=== PATIENT | female | born 1980 | race Two or more races ===

== ENCOUNTER 2017-02-04 17:01 | Emergency (ER) | payer OTHER ==
[2017-02-04 17:35] VITALS: BP 105/67
[2017-02-04] MEDS ORDERED: AZIT250T6 PO (17:42)
[2017-02-04] MEDS ORDERED: PRED20TA PO (17:42)
[2017-02-04] MEDS ORDERED: TRAM50TA PO (17:42)
--- NOTE | 2017-02-04 17:42 | PHYS DOC ---
Adult General Chief Complaint Chief Complaint: SORE THROAT HPI HPI Patient is a 36 year old female presents the ED complaining of sore throat 4 days. Describes the pain as sharp. Rates the pain as 8 out of 10. States she has had a history of strep throat infections. Sick contacts with similar symptoms. Associated symptoms include subjective fever, rhinorrhea and ear pain. Denies cough, chest pain, shortness of breath, dizziness, weakness, headache, rash or conjunctivitis. Review of Systems Review of Systems Constitutional: Complains of subjective fever. Denies chills [] Eyes: Denies change in visual acuity, redness, or eye pain [] HENT: Complains of rhinorrhea and sore throat. [] Respiratory: Denies cough or shortness of breath [] Cardiovascular: No additional information not addressed in HPI [] GI: Denies abdominal pain, nausea, vomiting, bloody stools or diarrhea [] : Denies dysuria or hematuria [] Musculoskeletal: Denies back pain or joint pain [] Integument: Denies rash or skin lesions [] Neurologic: Denies headache, focal weakness or sensory changes [] Endocrine: Denies polyuria or polydipsia [] All other systems were reviewed and found to be within normal limits, except as documented in this note. Allergies Allergies Allergies Coded Allergies Type Severity Reaction Last Updated Verified amoxicillin Allergy Intermediate Unknown 02/04/17 Yes sulfamethoxazole Allergy Intermediate Unknown 02/04/17 Yes trimethoprim Allergy Intermediate Unknown 02/04/17 Yes Physical Exam Physical Exam Constitutional: Well developed, well nourished, no acute distress, non-toxic appearance. [] HENT: Normocephalic, atraumatic, bilateral external ears normal, oropharynx moist, MILD PHARYNGEAL ERYTHEMA WITH EXUDATES. UVULA MIDLINE. nose normal. [] Eyes: PERRLA, EOMI, conjunctiva normal, no discharge. [] Neck: Normal range of motion, no tenderness, supple, no stridor. [] Cardiovascular:Heart rate regular rhythm, no murmur [] Lungs & Thorax: Bilateral breath sounds clear to auscultation [] Abdomen: Bowel sounds normal, soft, no tenderness, no masses, no pulsatile masses. [] Skin: Warm, dry, no erythema, no rash. [] Back: No tenderness, no CVA tenderness. [] Extremities: No tenderness, no cyanosis, no clubbing, ROM intact, no edema. [] Neurologic: Alert and oriented X 3, normal motor function, normal sensory function, no focal deficits noted. [] Psychologic: Affect normal, judgement normal, mood normal. [] Current Patient Data Vital Signs Vital Signs Date Time Temp Pulse Resp B/P (MAP) Pulse Ox O2 Delivery O2 Flow Rate FiO2 02/04/17 17:35 98.6 80 18 99 Room Air 98.6 EKG EKG [] Radiology/Procedures Radiology/Procedures [] Course & Med Decision Making Course & Med Decision Making Pertinent Labs and Imaging studies reviewed. (See chart for details) []Will treat for pharyngitis based on exam and history. Discussed symptomatic treatment at home. Discussed follow-up and reasons to return to the ED. Patient understands and agrees with plan. Dragon Disclaimer Dragon Disclaimer This electronic medical record was generated, in whole or in part, using a voice recognition dictation system. Departure Departure Impression: Primary Impression: Pharyngitis Disposition: 01 HOME, SELF-CARE Condition: STABLE Referrals: UNKNOWN PCP NAME (PCP) JUAN DIEGO KELLY MD Patient Instructions: Viral and Bacterial Pharyngitis Scripts Azithromycin (AZITHROMYCIN TABLET) 250 Mg Tablet 1 PKG PO UD, #6 TAB Prov: ZANDER LINARES 02/04/17 Tramadol Hcl (TRAMADOL HCL) 50 Mg Tablet 1 TAB PO PRN Q6HRS, #15 TAB Prov: ZANDER LINARES 02/04/17 Prednisone (PREDNISONE) 20 Mg Tablet 2 TAB PO DAILY, #10 TAB Prov: ZANDER LINARES 02/04/17 ZANDER LINARES Feb 04, 2017 17:42
== END 2017-02-04 17:49 | disposition home or self-care (01) ==
LOC: ER 17:01
DX: J02.9 Acute pharyngitis, unspecified (principal); H92.09 Otalgia, unspecified ear; Z88.1 Allergy status to other antibiotic agents
CPT/HCPCS: 99283

== ENCOUNTER 2017-03-02 14:27 | Emergency (ER) | payer OTHER ==
[~2017-03-02] VITALS: Ht 142.2 cm; Wt 58.5 kg
[~2017-03-02 14:27] MED LIST: AZIT250T6 PO; PRED20TA PO; TRAM50TA PO
[2017-03-02 15:47] VITALS: BP 99/65
[2017-03-02 16:12] LABS: BILIRUBIN,URINE NEGATIVE (NEG); GLUCOSE,URINE NEGATIVE (NEG); NITRITE,URINE NEGATIVE (NEG); PH,URINE 5.5; PROTEIN,URINE NEGATIVE (NEG-TRACE); UROBILINOGEN,URINE 0.2 mg/dL (0.2 mg/dL)
[2017-03-02 16:23] LABS: BACTERIA,URINE FEW /HPF (0-FEW); RBC,URINE 0 /HPF (0-2); SQUAMOUS EPITHELIAL CELL,UR OCC /LPF; WBC,URINE OCC /HPF (0-4)
[2017-03-02] MEDS ORDERED: IBUP-1007 PO (17:41)
--- NOTE | 2017-03-02 17:41 | PHYS DOC ---
Past Medical History Past Medical History: Hypothyroid, Other Additional Past Medical Histor: PCOS Past Surgical History: No Surgical History Alcohol Use: None Drug Use: None Adult General Chief Complaint Chief Complaint: ABDOMINAL PAIN HPI HPI Patient is a 36 year old female who presents with complaint of lower abdominal pain. Patient states that her symptoms started this morning upon awakening. Patient states that she is having lower abdominal cramping states that she has had some mild dysuria associated with symptoms. Patient denies any fevers. Patient has had nausea but no vomiting. The patient states currently she is not having any pain. The patient has not taken any medications for her symptoms. The patient states her last menstrual period was in June 2016. Patient states she has history of polycystic ovarian syndrome and hypothyroidism. Patient denies any vaginal bleeding or abnormal discharge. Review of Systems Review of Systems Constitutional: Denies fever or chills [] Eyes: Denies change in visual acuity, redness, or eye pain [] HENT: Denies nasal congestion or sore throat [] Respiratory: Denies cough or shortness of breath [] Cardiovascular: Denies chest pain or edema[] GI: Lower abdominal pain, nausea, denies vomiting, bloody stools or diarrhea [] : Denies dysuria or hematuria [] Musculoskeletal: Denies back pain or joint pain [] Integument: Denies rash or skin lesions [] Neurologic: Denies headache, focal weakness or sensory changes [] All other systems were reviewed and found to be within normal limits, except as documented in this note. Allergies Allergies Allergies Coded Allergies Type Severity Reaction Last Updated Verified amoxicillin Allergy Intermediate Unknown 02/04/17 Yes sulfamethoxazole Allergy Intermediate Unknown 02/04/17 Yes trimethoprim Allergy Intermediate Unknown 02/04/17 Yes Physical Exam Physical Exam Constitutional: Well developed, well nourished, no acute distress, non-toxic appearance. [] HENT: Normocephalic, atraumatic, bilateral external ears normal, oropharynx moist, no oral exudates, nose normal. [] Eyes: PERRLA, EOMI, conjunctiva normal, no discharge. [] Neck: Normal range of motion, no tenderness, supple, no stridor. [] Cardiovascular:Heart rate regular rhythm, no murmur [] Lungs & Thorax: Bilateral breath sounds clear to auscultation [] Abdomen: Bowel sounds normal, soft, no tenderness, no masses, no pulsatile masses. [] Skin: Warm, dry, no erythema, no rash. [] Back: No tenderness, no CVA tenderness. [] Extremities: No tenderness, no cyanosis, no clubbing, ROM intact, no edema. [] Neurologic: Alert and oriented X 3, normal motor function, normal sensory function, no focal deficits noted. [] Current Patient Data Vital Signs Vital Signs Date Time Temp Pulse Resp B/P (MAP) Pulse Ox O2 Delivery O2 Flow Rate FiO2 03/02/17 15:47 97.7 72 16 99/65 (76) 99 Room Air 97.7 Lab Values Laboratory Tests Test 03/02/17 15:50 Urine Color Yellow Urine Clarity Clear Urine pH 5.5 Urine Specific [place] 1.015 Urine Protein Negative mg/dL (NEG-TRACE) Urine Glucose (UA) Negative mg/dL (NEG) Urine Ketones (Stick) Negative mg/dL (NEG) Urine Blood Negative (NEG) Urine Nitrite Negative (NEG) Urine Bilirubin Negative (NEG) Urine Urobilinogen Dipstick 0.2 mg/dL (0.2 mg/dL) Urine Leukocyte Esterase Negative (NEG) Urine RBC 0 /HPF (0-2) Urine WBC Occ /HPF (0-4) Urine Squamous Epithelial Cells Occ /LPF Urine Bacteria Few /HPF (0-FEW) Urine Mucus Slight /LPF POC Urine HCG, Qualitative Hcg negative (Negative) EKG EKG Not performed[] Radiology/Procedures Radiology/Procedures Not performed[] Course & Med Decision Making Course & Med Decision Making Pertinent Labs and Imaging studies reviewed. (See chart for details) Vital signs are stable and patient appears well on exam. The patient may be experiencing uterine cramping due to pending menstrual cycle. The patient's urine shows no signs of acute infection and patient's hCG level was negative. The patient is not having pain at this time. The patient will be started on ibuprofen to use as needed for symptoms. Advise follow-up in 3-4 days with primary doctor for reevaluation. Advised return emergency department for any worsening symptoms. Patient voiced understanding and in agreement with treatment plan. Dragon Disclaimer Dragon Disclaimer This electronic medical record was generated, in whole or in part, using a voice recognition dictation system. Departure Departure Impression: Primary Impression: Pelvic pain Disposition: 01 HOME, SELF-CARE Condition: IMPROVED Referrals: NON,STAFF (PCP) Patient Instructions: Pelvic Pain, Female Additional Instructions: Follow-up he primary doctor in 3-4 days for reevaluation. Return to emergency department for any worsening symptoms. Scripts Ibuprofen (IBUPROFEN) 600 Mg Tablet 600 MG PO Q6HRS Y for INFLAMMATION, #30 TAB Prov: HENRI BROWN MD 03/02/17 HENRI BROWN MD Mar 02, 2017 17:41
[2017-03-02] MEDS ORDERED: HYDROcodone/APAP 5/325MG 1 TAB TABLET ONE (17:50)
== END 2017-03-02 17:57 | disposition home or self-care (01) ==
LOC: ER 14:27
DX: R10.2 Pelvic and perineal pain (principal); E03.9 Hypothyroidism, unspecified; Z88.1 Allergy status to other antibiotic agents; Z88.2 Allergy status to sulfonamides
CPT/HCPCS: 81001; 81025; 99283

== ENCOUNTER 2017-03-14 16:49 | Emergency (ER) | payer OTHER | END 2017-03-14 17:37 | disposition home or self-care (01) | LOC: ER 16:49 | DX: J02.9 Acute pharyngitis, unspecified (principal); R50.9 Fever, unspecified | CPT/HCPCS: 99283 ==

== ENCOUNTER 2019-02-08 21:11 | Emergency (ER) | payer SELFPAY ==
[~2019-02-08] VITALS: Ht 162.6 cm; Wt 56.7 kg
[~2019-02-08 21:11] MED LIST changes: +DOXY-96 PO; +IBUP-1007 PO
[2019-02-08 21:20] VITALS: BP 107/73
--- NOTE | 2019-02-08 22:35 | PHYS DOC ---
Past Medical History Past Medical History: Hypothyroid, Other Additional Past Medical Histor: PCOS (JUAN RICHARDS APRN) Past Surgical History: (JUAN RICHARDS APRN) Alcohol Use: None Drug Use: None (JUAN RICHARDS APRN) Attending Signature I have participated in the care of this patient and I have reviewed and agree with all pertinent clinical information above including history, exam, and recommendations. (SINDY TEJADA MD) Adult General Chief Complaint Chief Complaint: FLU SYMPTOM HPI HPI Patient is a 38 year old female who presents to the emergency department with complaints of a cold for the last 2 weeks. Patient states she has not been taking any [id number] cold medications because she is breast-feeding and doesn't know what is safe to take. She denies any nausea, vomiting, diarrhea, abdominal pain, chest pain, palpitations, fever, sore throat, body aches, fatigue, or rash. She reports a dry cough with nasal congestion, and bilateral ear pain. She currently rates her pain a 5 out of 10 on pain scale, she denies any alleviating factors. Patient denies any health problems other than hypothyroidism. She states her only surgical history is sections. All other ROS is neg unless otherwise noted in HPI. (JUAN RICHARDS APRN) Review of Systems Review of Systems See Above (JUAN RICHARDS APRN) Allergies Allergies Allergies Coded Allergies Type Severity Reaction Last Updated Verified amoxicillin Allergy Intermediate Unknown 02/04/17 Yes sulfamethoxazole Allergy Intermediate Unknown 02/04/17 Yes trimethoprim Allergy Intermediate Unknown 02/04/17 Yes (SINDY TEJADA MD) Physical Exam Physical Exam See Above Constitutional: Well developed, well nourished, no acute distress, non-toxic appearance. [] HENT: Normocephalic, atraumatic, bilateral external ears normal, bilateral TMs normal, posterior pharynx normal, oropharynx moist, no oral exudates, nose normal. [] Eyes: PERRLA, EOMI, conjunctiva normal, no discharge. [] Neck: Normal range of motion, no tenderness, supple, no stridor. [] Cardiovascular:Heart rate regular rhythm, no murmur [] Lungs & Thorax: Bilateral breath sounds clear to auscultation [] Skin: Warm, dry, no erythema, no rash. [] Back: No tenderness Extremities: No cyanosis, ROM intact Neurologic: Alert and oriented X 3, no focal deficits noted. [] Psychologic: Affect normal, judgement normal, mood normal. [] (JUAN RICHARDS APRN) Current Patient Data Vital Signs Vital Signs Date Time Temp Pulse Resp B/P (MAP) Pulse Ox O2 Delivery O2 Flow Rate FiO2 02/08/19 21:20 98.2 86 21 107/73 (84) 95 Room Air 98.2 (SINDY TEJADA MD) EKG EKG [] (JUAN RICHARDS APRN) Radiology/Procedures Radiology/Procedures [] (JUAN RICHARDS APRN) Course & Med Decision Making Course & Med Decision Making Pertinent Labs and Imaging studies reviewed. (See chart for details) dx: medical screening exam A medical screening exam was performed, patient was found to have no emergent medical condition. The plan of care would've included prescription for Tessalon Perles and URI instructions. However, the patient eloped after talking with registration. [] [] (JUAN RICHARDS APRN) Dragon Disclaimer Dragon Disclaimer This electronic medical record was generated, in whole or in part, using a voice recognition dictation system. (JUAN RICHARDS APRN) Departure Departure Impression: Primary Impression: Encounter for medical screening examination Disposition: HOME, SELF-CARE (eloped after speaking with registration) Condition: STABLE Referrals: NO PCP (PCP) JUAN RICHARDS APRN Feb 08, 2019 22:35 SINDY TEJADA MD Feb 08, 2019 23:51
== END 2019-02-08 21:47 | disposition home or self-care (01) ==
LOC: ER 21:11
DX: H92.03 Otalgia, bilateral (principal); R09.81 Nasal congestion; R05 Cough; E03.9 Hypothyroidism, unspecified; Z88.1 Allergy status to other antibiotic agents; Z88.2 Allergy status to sulfonamides
CPT/HCPCS: 99281